=== PATIENT | female | born 1995 | race American Indian/Alaskan Native ===

== ENCOUNTER 2020-04-18 21:27 | Emergency (ER) | payer SELFPAY ==
[2020-04-18 21:54] VITALS: BP 110/43
[2020-04-18 23:15] LABS: Bilirubin,Urine NEG (Negative); Blood,Urine LG (Negative); Color,Urine Yellow (Yellow); Mucus,Urine 3+ /HPF; Sperm,Urine FEW /HPF (NP); Urobilinogen,Urine < 2.0 mg/dL (<2.0)
[2020-04-18 23:15] LABS: Basophils % (Auto) 0.5 % (0.0-1.8); Eosinophils # (Auto) 0.1 K/mm3 (0.0-0.4); Eosinophils % (Auto) 1.1 % (0.0-4.3); Hematocrit 31.1 % (30.3-42.9); Hemoglobin 10.5 gm/dl (10.1-14.3); Lymphocytes # (Auto) 2.6 K/mm3 (1.2-5.4); Lymphocytes % (Auto) 34.4 % (13.4-35.0); Mean Corpuscular HGB Conc 34 % (30-34); Mean Corpuscular Volume 91 fl (79-97); Monocytes # (Auto) 0.5 K/mm3 (0.0-0.8); Monocytes % (Auto) 6.5 % (0.0-7.3); Platelet Count 252 K/mm3 (140-440); Red Blood Count 3.43 M/mm3 (3.65-5.03); Red Cell Distribution Width 13.6 % (13.2-15.2)
[2020-04-18 23:18] LABS: RBC,Urine > 182.0 /HPF (0.0-6.0)
--- NOTE | 2020-04-19 00:32 | Ultrasound Report ---
EXAMINATION: Obstetrical Ultrasound INDICATION: Vaginal bleeding in early COMPARISON: No prior studies are available for comparison. FINDINGS: The uterus is within normal limits in size measuring 8.3 x 4.7 x 5.6 cm. The endometrial thickness me asures a maximum of 1.0 cm. No intrauterine is identified. The bilateral adnexal regions appear normal. Doppler flow is demonstrated to both adnexal regions. No free pelvic fluid is visualized. IMPRESSION: 1. No sonographic evidence of intrauterine . Diagnostic considerations include failed or fa iling , too early to visualize or less likely ectopic . Close clinical an d laboratory follow-up is recommended. Signer Name: Susana Landa MD Signed: 04/19/2020 12:27 AM Workstation Name: [id number]
--- NOTE | 2020-04-19 03:20 | Emergency Department Report ---
ED Female HPI - General Chief complaint: Vaginal Bleeding Time Seen by Provider: 04/19/20 02:23 Source: patient Mode of arrival: Wheelchair Limitations: No Limitations - History of Present Illness Initial comments: pt is a a 24 y/o G3, P2, A1, who presents for vaginal bleeding after dx with miscarriage on yesterday , pt is followed by [facility] , was seen by OBGYN yesterday and sent to ed at reader Dx with miscarriage. She states bleeding increased today, she has used 4 pads today. She is concerned for ectopic as she was told that her pregancy was possibly ectopic on yesterday. pt denies fever or chills, no n/v, no other concern. MD Complaint: pelvic pain - Related Data : 3 Para: 2 A: 1 Previous Rx's Medication Instructions Recorded Last Taken Type traMADoL [Ultram] 50 mg PO Q6HR PRN #30 tablet 04/19/20 Unknown Rx Allergies Allergy/AdvReac Type Severity Reaction Status Date / Time shellfish derived AdvReac Swelling Verified 04/18/20 21:33 ED Review of Systems ROS: Stated complaint: Other details as noted in HPI Constitutional: denies: chills, fever Eyes: denies: eye pain, eye discharge, vision change ENT: denies: ear pain, throat pain Respiratory: denies: cough, shortness of breath, wheezing Cardiovascular: as per HPI. denies: chest pain, palpitations, edema, paroxysmal nocturnal dyspnea Endocrine: no symptoms reported Gastrointestinal: abdominal pain (cramping ). denies: nausea, vomiting, diarrhea Genitourinary: denies: urgency, dysuria, frequency, hematuria, discharge, dyspareunia Musculoskeletal: denies: back pain, joint swelling, arthralgia Skin: denies: rash, lesions Neurological: as per HPI Psychiatric: as per HPI. denies: anxiety, depression Hematological/Lymphatic: as per HPI ED Past Medical Hx - Past Medical History Previous Medical History?: No - Surgical History Past Surgical History?: No - Social History Smoking Status: Never Smoker Substance Use Type: None - Medications Home Medications: Home Medications Medication Instructions Recorded Confirmed Last Taken Type traMADoL [Ultram] 50 mg PO Q6HR PRN #30 tablet 04/19/20 Unknown Rx ED Physical Exam - General Limitations: No Limitations General appearance: alert, in no apparent distress - Head Head exam: Present: atraumatic - Eye Eye exam: Present: normal appearance, PERRL, EOMI Pupils: Present: normal accommodation - ENT ENT exam: Present: mucous membranes moist - Neck Neck exam: Present: normal inspection, full ROM. Absent: tenderness, lymphadenopathy - Respiratory Respiratory exam: Present: normal lung sounds bilaterally. Absent: respiratory distress, wheezes, stridor, chest wall tenderness - Cardiovascular Cardiovascular Exam: Present: regular rate, normal rhythm, normal heart sounds. Absent: systolic murmur, diastolic murmur, rubs, gallop - GI/Abdominal GI/Abdominal exam: Present: soft, normal bowel sounds. Absent: tenderness, guarding, bruit, hernia - Rectal Rectal exam: Present: deferred - External exam: Present: other (deferred by patient ) - Extremities Exam Extremities exam: Present: normal inspection - Back Exam Back exam: Present: normal inspection, full ROM. Absent: tenderness, CVA te nderness (R), CVA tenderness (L), vertebral tenderness - Neurological Exam Neurological exam: Present: alert, oriented X3, CN II-XII intact, normal gait - Psychiatric Psychiatric exam: Present: normal affect - Skin Skin exam: Present: warm, dry, intact, normal color. Absent: rash ED Course Vital Signs 04/18/20 21:34 Temperature 98.5 F Pulse Rate 66 Respiratory 12 Rate Blood Pressure 110/43 O2 Sat by Pulse 98 Oximetry ED Medical Decision Making - Lab Data Result diagrams: 04/18/20 21:49 Labs 04/18/20 04/18/20 04/18/20 21:49 21:49 21:49 WBC 7.4 RBC 3.43 L Hgb 10.5 Hct 31.1 MCV 91 MCH 31 MCHC 34 RDW 13.6 Plt Count 252 Lymph % (Auto) 34.4 Angelina % (Auto) 6.5 Eos % (Auto) 1.1 Baso % (Auto) 0.5 Lymph # 2.6 Angelina # 0.5 Eos # 0.1 Baso # 0.0 Seg Neutrophils % 57.5 Seg Neutrophils # 4.3 HCG, Qual Positive HCG, Quant 5204 H Urine Color Urine Turbidity Urine pH Ur Specific [place] Urine Protein Urine Glucose (UA) Urine Ketones Urine Blood Urine Nitrite Urine Bilirubin Urine Urobilinogen Ur Leukocyte Esterase Urine WBC (Auto) Urine RBC (Auto) U Epithel Cells (Auto) Urine Mucus Urine Sperm Blood Type 04/18/20 04/18/20 21:49 22:34 WBC RBC Hgb Hct MCV MCH MCHC RDW Plt Count Lymph % (Auto) Angelina % (Auto) Eos % (Auto) Baso % (Auto) Lymph # Angelina # Eos # Baso # Seg Neutrophils % Seg Neutrophils # HCG, Qual HCG, Quant Urine Color Yellow Urine Turbidity Slightly-cloudy Urine pH 6.0 Ur Specific [place] 1.027 Urine Protein 100 mg/dl Urine Glucose (UA) Neg Urine Ketones Neg Urine Blood Lg Urine Nitrite Neg Urine Bilirubin Neg Urine Urobilinogen < 2.0 Ur Leukocyte Esterase Neg Urine WBC (Auto) 7.0 H Urine RBC (Auto) > 182.0 U Epithel Cells (Auto) 6.0 Urine Mucus 3+ Urine Sperm Few Blood Type O POSITIVE - Radiology Data Radiology results: report reviewed, image reviewed Findings Reporting MD: Susana Landa Dictation Time: April 18, 2020 23:27 Health Record Technician: Not available Record Press Supervisor Date: EXAMINATION: Obstetrical Ultrasound INDICATION: Vaginal bleeding in early COMPARISON: No prior studies are available for comparison. FINDINGS: The uterus is within normal limits in size measuring 8.3 x 4.7 x 5.6 cm. The endometrial thickness measures a maximum of 1.0 cm. No intrauterine is identified. The bilateral adnexal regions appear normal. Doppler flow is demonstrated to both adnexal regions. No free pelvic fluid is visualized. IMPRESSION: 1. No sonographic evidence of intrauterine . Diagnostic considerations include failed or failing , too early to visualize or less likely ectopic . Close clinical and laboratory follow-up is recommended. Signer Name: Susana Landa MD Signed: 04/18/2020 11:27 PM Workstation Name: [id number] - Medical Decision Making Us : no intrauterine noted, Hcg; 5243, ua: noted, h/h normal, pt will follow up with WATER/WASTEWATER PROJECT MANAGER in 1-2 days, pt verbalized agreement and understanding of same , pt dc'd to home in stable condition at this time Critical care attestation.: If time is entered above; I have spent that time in minutes in the direct care of this critically ill patient, excluding procedure time. ED Disposition Clinical Impression: Miscarriage Disposition: DC-01 TO HOME OR SELFCARE Is pt being admited?: No Does the pt Need Aspirin: No Condition: Stable Instructions: Spontaneous Miscarriage (ED) Prescriptions: traMADoL [Ultram] 50 mg PO Q6HR PRN #30 tablet PRN Reason: Pain Referrals: [facility] [Provider Group] - 3-5 Days BLAKE KING MD [Primary Care Provider] - 2-3 Days Forms: Work/School Release Form(ED) Time of Disposition: 03:30
[2020-04-19] MEDS ORDERED: HYDROcodone/ACETAMINOPHEN 5-325 MG TAB PO ONE (03:22)
== END 2020-04-19 03:45 | disposition home or self-care (01) ==
LOC: ED 21:27 → EDSTATUS 21:31 → ED 04-19 03:45
DX: O03.9 Complete or unspecified spontaneous abortion without complication (principal)
CPT/HCPCS: 36415; 76801; 76817; 81001; 84702; 84703; 85025; 86900; 86901

== ENCOUNTER 2020-04-28 13:49 | Emergency (ER) | payer MEDICAID ==
--- NOTE | 2020-04-28 15:00 | Emergency Department Report ---
HPI - General Chief Complaint: Psych Time Seen by Provider: 04/28/20 14:22 - HPI HPI: This is a 24-year-old -[place] female who presents to the emergency department with complaint of severe depression. The chart/triage initially says that the complaint of depression is related to a miscarriage 1 week ago. It is true the patient did have a miscarriage but she says that the feelings of depression have been going on over the past 2 years. She denies any suicidal or homicidal ideations, or any hallucinations. The patient says it is gotten to the point where her 6 and 9-year-old children are taking care of her better than she is taking care of them. Patient says that she spends the evenings crying and therefore does not sleep much. When she wakes up she says that she feels very tired and just wants to go back to bed. Patient says that her depression and anxiety gets so bad that sometimes she will only eat about 1 cracker per day. The patient says that her kids often try to give some of their food to her because "mommy is sick." She has never been diagnosed with depression or been able to see any psychiatrist or therapist. She tried to see some psychiatric professionals over the past few days but was unable to get an appointment. The patient later saw the psychiatric boiler/chiller operator and expressed multiple hopeless thoughts and feelings. While the patient does not actively want to kill herself, she has thoughts of being and this being a relief from the way she is feeling. ED Past Medical Hx - Past Medical History Previous Medical History?: No - Surgical History Past Surgical History?: No - Social History Smoking Status: Never Smoker Substance Use Type: None - Medications Home Medications: Home Medications Medication Instructions Recorded Confirmed Last Taken Type traMADoL [Ultram] 50 mg PO Q6HR PRN #30 tablet 04/19/20 Unknown Rx ED Review of Systems ROS: Stated complaint: DEPRESSION Other details as noted in HPI Comment: All other systems reviewed and negative Constitutional: denies: chills, fever Respiratory: denies: cough, shortness of breath Cardiovascular: denies: chest pain, palpitations Gastrointestinal: denies: abdominal pain, vomiting Musculoskeletal: denies: back pain Neurological: denies: headache, weakness Psychiatric: depression. denies: auditory hallucinations, visual hallucinations, homicidal thoughts, suicidal thoughts Physical Exam - Physical Exam Vital Signs: Vital Signs 04/28/20 14:03 Temperature 98.4 F Pulse Rate 92 H Respiratory 16 Rate Blood Pressure 140/73 [Left] O2 Sat by Pulse 99 Oximetry Physical Exam: GENERAL: The patient is well-developed well-nourished. HENT: Normocephalic. Atraumatic. Patient has moist mucous membranes. EYES: Extraocular motions are intact. NECK: Supple. Trachea is midline. CHEST/LUNGS: Clear to auscultation. There is no respiratory distress noted. HEART/CARDIOVASCULAR: Regular. There is no tachycardia. ABDOMEN: Abdomen is soft, nontender. Patient has normal bowel sounds. SKIN: Skin is warm and dry. NEURO: The patient is awake, alert, and oriented. The patient is cooperative. Normal speech. MUSCULOSKELETAL: There is no tenderness or deformity. There is no limitation range of motion. PSYCH: Patient is depressed and tearful. ED Course Vital Signs 04/28/20 14:03 Temperature 98.4 F Pulse Rate 92 H Respiratory 16 Rate Blood Pressure 140/73 [Left] O2 Sat by Pulse 99 Oximetry ED Medical Decision Making - Lab Data Result diagrams: 04/28/20 15:06 04/28/20 15:06 - Medical Decision Making This patient presents with severe anxiety and depression. While the chart initially mentioned that the patient recently had a miscarriage, her symptoms have been going on over the past 2 years and just recently have gotten worse. It has gotten to the point where the patient is not taking care of herself. She says she has gone 4 days without eating anything more than a cracker each day and is barely drinking any water. She says that her kids are taking care of her instead of vice versa. The patient's anxiety and depression appear to be debilitating and are not allowing her to function appropriately. On top of that, while discussing her symptoms with the psychiatric boiler/chiller operator, the patient does exhibit some thoughts of wanting to be , although she does not appear to want to kill herself. For all these reasons, however, the patient does appear to meet criteria and require inpatient stabilization. A 1013 has been signed. The patient's labs have been unremarkable thus far including CBC, CMP and blood alcohol level. We are waiting for a urine sample for urinalysis and urine drug screen. Vital signs have been reassuring throughout her ED course thus far. I consider this patient medically cleared for psychiatric placement. Critical Care Time: No Critical care attestation.: If time is entered above; I have spent that time in minutes in the direct care of this critically ill patient, excluding procedure time. ED Disposition Clinical Impression: Severe depression, Anxiety, Recurrent thoughts of Disposition: [id number]/TX-[id number] PSY HOSP/PSY UNIT Is pt being admited?: No Condition: Stable Time of Disposition: 18:55
[2020-04-28 15:37] LABS: Basophils % (Auto) 0.6 % (0.0-1.8); Eosinophils % (Auto) 0.5 % (0.0-4.3); Hematocrit 37.2 % (30.3-42.9); Hemoglobin 12.4 gm/dl (10.1-14.3); Lymphocytes # (Auto) 1.5 K/mm3 (1.2-5.4); Lymphocytes % (Auto) 26.8 % (13.4-35.0); Mean Corpuscular HGB Conc 33 % (30-34); Mean Corpuscular Volume 91 fl (79-97); Monocytes # (Auto) 0.4 K/mm3 (0.0-0.8); Monocytes % (Auto) 6.7 % (0.0-7.3); Platelet Count 327 K/mm3 (140-440); Red Blood Count 4.08 M/mm3 (3.65-5.03); Red Cell Distribution Width 13.9 % (13.2-15.2)
[2020-04-28 15:51] LABS: Alanine Aminotransferase 13 units/L (7-56); Albumin 4.8 g/dL (3.9-5); BUN/Creatinine Ratio 10; Blood Urea Nitrogen 8 mg/dL (7-17); Calcium 9.8 mg/dL (8.4-10.2); Hemolysis Index 4
[2020-04-28 20:44] LABS: Bacteria,Urine 1+ /HPF (Negative); Bilirubin,Urine NEG (Negative); Blood,Urine NEG (Negative); Color,Urine Yellow (Yellow); Mucus,Urine 3+ /HPF; Protein,Urine <15 mg/dL mg/dL (Negative); Urobilinogen,Urine < 2.0 mg/dL (<2.0)
[2020-04-28 20:47] LABS: Amphetamine Screen,Urine Negative; Benzodiazepines Screen,Urine Negative; Cocaine Screen,Urine Negative; Methadone Screen,Urine Negative; Opiate Screen,Urine Negative
[2020-04-28 21:01] LABS: Cannabinoid Screen,Urine Positive
[2020-04-28] MEDS ORDERED: ACETAMINOPHEN 325 MG TAB PO ONE ×2 (23:30→23:32)
[2020-04-28] MEDS ORDERED: ACETAMINOPHEN 325 MG TAB ONE (23:32)
[2020-04-29 08:10] VITALS: BP 101/48
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
[2020-04-29] MEDS ORDERED: SERTRALINE 50 MG TAB PO SCH (11:00)
== END 2020-04-29 18:16 ==
LOC: ED 13:49 → EEVIPCON 13:49 → ED 04-29 18:16
DX: F33.9 Major depressive disorder, recurrent, unspecified (principal); F41.9 Anxiety disorder, unspecified; Z79.899 Other long term (current) drug therapy; Z91.013 Allergy to seafood
CPT/HCPCS: 36415; 80053; 80307; 80320; 81001; 85025; G0480

== ENCOUNTER 2021-03-22 02:14 | Inpatient (IN) | payer MEDICAID ==
[2021-03-22] MEDS ORDERED: LACTATED RINGERS 1,000 ML ONE (02:48)
[2021-03-22] MEDS ORDERED: MINERAL OIL 30 ML ORAL LIQD PO PRN (02:51)
[2021-03-22] MEDS ORDERED: ACETAMINOPHEN 325 MG TAB PO PRN (02:51)
[2021-03-22] MEDS ORDERED: METHYLERGONOVINE MALEATE 0.2 MG/ML VIAL IM PRN (02:51)
[2021-03-22] MEDS ORDERED: OXYTOCIN 10 UNIT/1 ML INJ IM PRN (02:51)
[2021-03-22] MEDS ORDERED: TERBUTALINE 1 MG/1 ML INJ SUB-Q PRN (02:51)
[2021-03-22] MEDS ORDERED: LIDOCAINE (2%) 20 MG/1 ML VIAL 20 ML MDV INFILTRATI ONE (02:51)
[2021-03-22] MEDS ORDERED: fentaNYL 100 MCG/2 ML INJ IV PRN (02:51)
[2021-03-22] MEDS ORDERED: CARBOPROST TROMETHAMINE 250 MCG/1 ML INJ IM PRN (02:51)
[2021-03-22] MEDS ORDERED: LOPERAMIDE 2 MG CAP PO PRN (02:51)
[2021-03-22] MEDS ORDERED: miSOPROStol 200 MCG TAB PR PRN (02:51)
[2021-03-22] MEDS ORDERED: BUTORPHANOL 2 MG/1 ML INJ IV PRN (02:51)
[2021-03-22] MEDS ORDERED: ePHEDrine SULFATE 50 MG/1 ML INJ IV PRN ×2 (02:51→03:58)
[2021-03-22] MEDS ORDERED: LACTATED RINGERS 1,000 ML IV SCH (03:00)
[2021-03-22] MEDS ORDERED: OXYTOCIN DRIP 30 UNITS/500 ML BAG IV SCH ×2 (03:00)
[2021-03-22 03:25] LABS: Hematocrit 31.6 % (30.3-42.9); Hemoglobin 10.8 gm/dl (10.1-14.3); Mean Corpuscular HGB Conc 34 % (30-34); Mean Corpuscular Volume 88 fl (79-97); Platelet Count 420 K/mm3 (140-440); Red Blood Count 3.59 M/mm3 (3.65-5.03); Red Cell Distribution Width 13.9 % (13.2-15.2)
[2021-03-22] MEDS ORDERED: AMPICILLIN/NS 2 GM/100 ML 0 GM/0 ML BAG IV ONE (03:37)
[2021-03-22] MEDS ORDERED: NalbUPHINE 10 MG/1 ML INJ IV PRN (03:58)
[2021-03-22] MEDS ORDERED: diphenhydrAMINE 50 MG/ML VIAL IV PRN (03:58)
[2021-03-22] MEDS ORDERED: NALOXONE 2 MG/2 ML INJ IV PRN (03:58)
[2021-03-22] MEDS ORDERED: ONDANSETRON 4 MG/2 ML INJ IV PRN ×2 (03:58→08:00)
[2021-03-22] MEDS ORDERED: LACTATED RINGERS 1000 ML IV SOLN IV ONE (03:58)
[2021-03-22] MEDS ORDERED: fentaNYL-BUPIV 2 MCG/ML-0.125% 200 MCG/100 ML BAG EPIDURAL SCH (04:00)
--- NOTE | 2021-03-22 04:24 | Anesthesia Consultation ---
Anesthesia Consult and Med Hx Date of service: 03/22/21 - Airway Anesthetic Teeth Evaluation: Good ROM Head & Neck: Adequate Mental/Hyoid Distance: Adequate Mallampati Class: Class II Intubation Access Assessment: Probably Good - Pulmonary Exam CTA: Yes - Cardiac Exam Cardiac Exam: RRR - Pre-Operative Health Status ASA Pre-Surgery Classification: ASA2 Proposed Anesthetic Plan: Epidural - Pulmonary Hx Smoking: No Hx Asthma: No COPD: No Hx Pneumonia: No Hx Sleep Apnea: No - Cardiovascular System Hx Hypertension: No Hx Heart Attack/AMI: No Hx Angina: No - Central Nervous System Hx Seizures: No Hx Psychiatric Problems: Yes (2020- depression) - Gastrointestinal Hx Gastroesophageal Reflux Disease: No - Endocrine Hx Renal Disease: No Hx End Stage Renal Disease: No Hx Liver Disease: No Hx Insulin Dependent Diabetes: No Hx Non-Insulin Dependent Diabetes: No Hx Hypothyroidism: No Hx Hyperthyroidism: No - Hematic Hx Anemia: Yes Hx Sickle Cell Disease: No - Other Systems Hx Alcohol Use: No
--- NOTE | 2021-03-22 04:25 | Progress Note ---
Labor Epidural - Labor Epidural Start Time: 04:10 Stop Time: 04:20 Performed by:: MINDI EDUARDO Procedure: Patient is requesting epidural for labor and pain. H&P, labs were reviewed. Patient IDed, H&P reviewed, all questions and concerns were answered, and consent was signed. Timeout was performed at bedside. Patient in sitting position. Sterile prep and drape was performed. 3ml of 1% lidocaine skin wheal at L[3]- L [4]. 18-gauge [employer] epidural needle was advanced to loss of resistance with air technique 6.5cm. Negative CSF negative blood. Epidural catheter advanced to [12] centimeters. [negative] Aspiration [negative] test d ose. Sterile dressing applied. Patient tolerated procedure.
--- NOTE | 2021-03-22 04:46 | History and Physical Report ---
History of Present Illness Date of examination: 03/22/21 Date of admission: 03/22/21 02:44 Chief complaint: Uterine contractions and leakage of fluid History of present illness: 25-year-old -0-1-2 at 39 and 3 weeks who presents with suspected leakage of fluid and regular uterine contractions. The patient has a history of a previous delivery and a successful vaginal after . She has elected to attempt a trial of labor. The patient is a transfer of care at 27 weeks. course is complicated by anemia and previous delivery. She is GBS negative Past History Past Medical History: other (Anemia) Past Surgical History: section Social history: single - Obstetrical History Expected Date of Delivery: 03/26/21 Actual Gestation: 39 Week(s) 3 Day(s) : 4 Para: 2 Hx # Term Pregnancies: 2 Number of Pregnancies: 0 Spontaneous Abortions: 1 Induced : 0 Number of Living Children: 2 Medications and Allergies Allergies Allergy/AdvReac Type Severity Reaction Status Date / Time shellfish derived AdvReac Swelling Verified 04/18/20 21:33 Home Medications Medication Instructions Recorded Confirmed Last Taken Type traMADoL [Ultram] 50 mg PO Q6HR PRN #30 tablet 04/19/20 03/22/21 Unknown Rx Active Meds: Active Medications Acetaminophen (Acetaminophen 325 Mg Tab) 650 mg PO Q4H PRN PRN Reason: Pain, Mild (1-3) Butorphanol Tartrate (Butorphanol 2 Mg/1 Ml Inj) 1 mg IV Q2H PRN PRN Reason: Pain, Moderate(4-6) LABOR PAIN Carboprost Tromethamine (Carboprost Tromethamine 250 Mcg/1 Ml Inj) 250 mcg IM ONCE PRN PRN Reason: Uterine Bleeding Diphenhydramine HCl (Diphenhydramine 50 Mg/Ml Vial) 12.5 mg IV Q2H PRN PRN Reason: Itching Ephedrine Sulfate (Ephedrine Sulfate 50 Mg/1 Ml Inj) 10 mg IV Q2M PRN PRN Reason: Hypotension Fentanyl (Fentanyl 100 Mcg/2 Ml Inj) 100 mcg IV Q2H PRN PRN Reason: Pain,Severe (7-10) LABOR PAIN Last Admin: 03/22/21 03:21 Dose: 100 mcg Documented by: Oxytocin/Sodium Chloride (Pitocin/Ns 30 Unit/500ml) 30 units in 500 mls @ 2 mls/hr IV TITR FRAN; Protocol Lactated Ringer's (Lactated Ringers) 1,000 mls @ 125 mls/hr IV DIRECT FRAN Oxytocin/Sodium Chloride (Pitocin/Ns 30 Unit/500ml) 30 units in 500 mls @ 40 mls/hr IV TITR FRAN; Protocol Fentanyl/Bupivacaine/Sodium Chlor (Fentanyl-Bupiv 2 Mcg/Ml-0.125%) 200 mcg in 100 mls @ 12 mls/hr EPIDURAL TITR FRAN; Protocol Loperamide HCl (Loperamide 2 Mg Cap) 2 mg PO ONCE PRN PRN Reason: give with Hemabate Methylergonovine Maleate (Methylergonovine Maleate 0.2 Mg/Ml Vial) 0.2 mg IM ONCE PRN PRN Reason: Uterine Bleeding Mineral Oil (Mineral Oil 30 Ml Oral Liqd) 30 ml PO QHS PRN PRN Reason: Constipation Misoprostol (Misoprostol 200 Mcg Tab) 800 mcg CO ONCE PRN PRN Reason: Uterine Bleeding Nalbuphine HCl (Nalbuphine 10 Mg/1 Ml Inj) 2.5 mg IV Q2H PRN PRN Reason: Itching Naloxone HCl (Naloxone 2 Mg/2 Ml Inj) 0.2 mg IV Q5M PRN PRN Reason: Respiratory sedation Ondansetron HCl (Ondansetron 4 Mg/2 Ml Inj) 4 mg IV Q8H PRN PRN Reason: Nausea And Vomiting Oxytocin (Oxytocin 10 Unit/1 Ml Inj) 10 unit IM ONCE PRN PRN Reason: Uterine Bleeding Terbutaline Sulfate (Terbutaline 1 Mg/1 Ml Inj) 0.25 mg SUB-Q ONCE PRN PRN Reason: Hyperstimulation/Hypertonicity Review of Systems All systems: negative Genitourinary: leakage of fluid, contractions - Vital Signs Vital signs: Vital Signs Pulse Pulse Ox 85 97 03/22/21 03:08 03/22/21 03:08 Temp Pulse Resp BP Pulse Ox 83 124/76 99 03/22/21 04:41 03/22/21 04:41 03/22/21 04:40 - Physical Exam Breasts: Positive: deferred Cardiovascular: Regular rate Lungs: Positive: Clear to auscultation Abdomen: Positive: normal appearance - Obstetrical Cervical Dilatation: 2 Results Result Diagrams: 03/22/21 02:14 Abnormal lab results 03/22/21 Range/Units 02:14 RBC 3.59 L (3.65-5.03) M/mm3 All other labs normal. Assessment and Plan - Patient Problems (1) Previous delivery affecting Current Visit: Yes Status: Acute Plan to address problem: Admit to labor and delivery Attempt trial of labor (2) Spontaneous rupture of membranes Current Visit: Yes Status: Acute
--- NOTE | 2021-03-22 07:04 | Procedure Note ---
OB Delivery Note - Delivery Date of Delivery: 03/22/21 Surgeon: BLAKE KING Estimated blood loss: other (50ml) - Vaginal Delivery presentation: vertex Delivery position: OA Delivery monitor: external FHT, external uterine Route of delivery: Delivery placenta: spontaneous Delivery cord: 3 umbilical vessels Episiotomy: none Delivery laceration: 1st degree Anesthesia: epidural - Infant A at 1 minute: 8 at 5 minutes: 9 Gender: Male (weight 7lbs 10oz)
[2021-03-22] MEDS ORDERED: HYDROcodone/ACETAMINOPHEN 5-325 MG TAB PO PRN (08:00)
[2021-03-22] MEDS ORDERED: WITCH HAZEL/ GLYCERIN PAD TP PRN (08:00)
[2021-03-22] MEDS ORDERED: LANOLIN/ZINC/DIMETHICONE (LANSINOH) 7 GM TP PRN (08:00)
[2021-03-22] MEDS ORDERED: MAGNESIUM HYDROXIDE (MOM) ORAL LIQD UDC PO PRN (08:00)
[2021-03-22] MEDS ORDERED: PROMETHAZINE 25 MG TAB PO PRN (08:00)
[2021-03-22] MEDS ORDERED: diphenhydrAMINE 25 MG CAP PO PRN (08:00)
[2021-03-22] MEDS ORDERED: PROMETHAZINE 25 MG RECT SUPP PR PRN (08:00)
--- NOTE | 2021-03-22 10:17 | Post Anesthesia Evaluation ---
- Post Anesthesia Evaluation Patient Participated: Yes Airway Patent: Yes Stable Respiratory Function: Yes Nausea/Vomiting: No Temp > 96.8F: Yes Pain Manageable: Yes Adequeate Hydration: Yes Anesthesia Complications: No Block Receding Appropriately: Yes Patient on Ventilator: No
[2021-03-22] MEDS: IBUPROFEN 600 MG TAB PO SCH ×3 (10:59→23:16)
[2021-03-22 19:08] LABS: Hematocrit 32.2 % (30.3-42.9); Hemoglobin 10.4 gm/dl (10.1-14.3)
[2021-03-23] MEDS: IBUPROFEN 600 MG TAB PO SCH ×4 (05:41→20:00)
--- NOTE | 2021-03-23 14:53 | Progress Note ---
Assessment and Plan - Patient Problems (1) Previous delivery affecting Current Visit: Yes Status: Acute Plan to address problem: Patient doing well Discharge home tomorrow (2) Spontaneous rupture of membranes Current Visit: Yes Status: Acute Subjective - Subjective Date of service: 03/23/21 Interval history: Patient doing well. Her baby is currently receiving light therapy secondary to elevated bilirubin levels. We will attempt to discharge patient home tomorrow Patient reports: appetite normal, voiding normally, pain well controlled [place]: doing well Objective - Vital Signs Latest vital signs: Vital Signs Temp Pulse Resp BP BP Pulse Ox Pulse Ox 03/23/21 07:52 97.6 F 77 18 122/82 97 03/23/21 05:39 97 03/23/21 04:00 98.7 F 78 16 102/78 03/23/21 03:25 99 03/23/21 01:30 98 03/23/21 00:09 98.0 F 81 18 117/62 98 03/22/21 23:14 99 03/22/21 22:26 99 03/22/21 19:46 98.6 F 79 18 122/71 98 03/22/21 19:35 98 03/22/21 16:21 98.5 F 86 16 102/55 99 Intake and Output 03/22/21 03/23/21 03/23/21 22:59 06:59 14:59 Intake Total 860 500 Output Total 925 Balance -65 500 Intake: Oral 200 200 Intake, Free Water 660 300 Output: Urine 925 Void 925 Other: Total, Intake Amount 200 200 Total, Output Amount 500 # Voids Void 1 1 - Exam Breasts: Present: deferred Cardiovascular: Present: Regular rate Lungs: Present: Clear to auscultation
--- NOTE | 2021-03-23 14:56 | Discharge Summary ---
Providers - Providers Date of Admission: 03/22/21 02:44 Date of discharge: 03/24/21 Attending physician: BLAKE KING Primary care physician: BLAKE KING Hospitalization Reason for admission: active labor Delivery: Discharge diagnosis: IUP at term delivered, Hospital course: Patient was admitted with leakage of fluid. She subsequently progressed in labor and had a vaginal after delivery. course was uneventful. Condition at discharge: Good Disposition: DC-01 TO HOME OR SELFCARE - Discharge Diagnoses (1) Previous delivery affecting Status: Acute (2) Spontaneous rupture of membranes Status: Acute Plan - Discharge Medications Prescriptions: Ibuprofen [Motrin] 800 mg PO Q8HR PRN #30 tablet PRN Reason: Pain , Severe (7-10) HYDROcodone/APAP 5-325 [[place] 5/325] 1 each PO Q6HR PRN #15 tablet PRN Reason: Pain - Provider Discharge Summary Activity: no sex for 6 weeks, no heavy lifting 4 weeks, no strenuous exercise Diet: routine Instructions: routine Additional instructions: [] Smoking cessation referral if applicable(refer to patient education folder for contact #) [] Refer to [facility] Booklet Call your doctor immediately for: * Fever > 100.5 * Heavy vaginal bleeding ( >1 pad per hour) * Severe persistent headache * Shortness of breath * Reddened, hot, painful area to leg or breast * Schedule visit in 4 weeks - Follow up plan
[2021-03-24] MEDS: IBUPROFEN 600 MG TAB PO SCH ×3 (03:03→12:35)
[2021-03-24 17:22] VITALS: BP 127/78
== END 2021-03-24 18:51 | disposition home or self-care (01) | DRG 775 ==
LOC: TRG 02:14 → APU 02:17 → LD 02:42 → TRG 02:43 → LD 02:44 → OBSVTOIN 02:44 → OB 09:27
PROVIDERS: ADMIT Obstetrics & Gynecology; ATTEND Obstetrics & Gynecology
PROC: 10E0XZZ Delivery of Products of Conception, External Approach (ICD-10-PCS; principal; 2021-03-22)
PROC: 3E0R3BZ Introduction of Anesthetic Agent into Spinal Canal, Percutaneous Approach (ICD-10-PCS; 2021-03-22)
PROC: 00HU33Z Insertion of Infusion Device into Spinal Canal, Percutaneous Approach (ICD-10-PCS; 2021-03-22)
DX: O34.219 Maternal care for unspecified type scar from previous cesarean delivery (principal); Z3A.39 39 weeks gestation of pregnancy; Z37.0 Single live birth; Z91.013 Allergy to seafood; Z20.822 Contact with and (suspected) exposure to COVID-19; O70.0 First degree perineal laceration during delivery; O99.02 Anemia complicating childbirth
CPT/HCPCS: 36415; 85014; 85018; 85027; 86592; 86850; 86900; 86901; 96360; 99211; G0378; A6250; G0463; J2590; J3010; U0003